=== PATIENT | male | born 1980 | race Caucasian/White ===

== ENCOUNTER 2024-02-13 06:55 | Emergency (ER) | payer OTHER ==
[~2024-02-13] VITALS: Ht 185.4 cm; Wt 99.8 kg
[2024-02-13] MEDS ORDERED: PANTOPRAZOLE SO20 MG PO (07:17)
[2024-02-13] MEDS ORDERED: Amoxicillin/Clavulanate Pota 875 MG TAB PO ONE (07:35)
[2024-02-13] MEDS ORDERED: AMOX-CLAV 875-1 EACH PO (07:36)
== END 2024-02-13 07:44 | disposition home or self-care (01) ==
LOC: ED 06:55
DX: J02.0 Streptococcal pharyngitis (principal); Z79.899 Other long term (current) drug therapy; Z98.890 Other specified postprocedural states